=== PATIENT | female | born 1995 | race American Indian/Alaskan Native ===

== ENCOUNTER 2017-03-31 17:15 | Emergency (ER) | payer SELFPAY ==
--- NOTE | 2017-03-31 17:39 | Emergency Department Report ---
Chief Complaint: Chest Pain Stated Complaint: CHEST PAIN /DIZZINESS/LIGHT HEADED Time Seen by Provider: 03/31/17 17:35 - HPI History of Present Illness: PT states she had a panic attack while at work. PT states her symptoms have lasted for 30-45 min. PT states she is feeling better now - ROS Review of Systems: + anxiety + stress + chest pain - depression - Exam Vital Signs: Vital Signs 03/31/17 17:25 Temperature 98.2 F Pulse Rate 66 Respiratory 18 Rate Blood Pressure 156/90 O2 Sat by Pulse 100 Oximetry Physical Exam: obese female flat affect MSE screening note: Focused history and physical exam performed. Due to findings the following was ordered: labs, xr ED Disposition for MSE Condition: Stable
[2017-03-31 20:05] LABS: Basophils % (Auto) 0.8 % (0.0-1.8); Eosinophils % (Auto) 1.2 % (0.0-4.3); Hematocrit 38.1 % (30.3-42.9); Hemoglobin 12.4 gm/dl (10.1-14.3); Mean Corpuscular HGB Conc 32 % (30-34); Mean Corpuscular Volume 70 fl (79-97); Platelet Count 333 K/mm3 (140-440); Red Blood Count 5.42 M/mm3 (3.65-5.03); Red Cell Distribution Width 15.9 % (13.2-15.2)
[2017-03-31 20:06] LABS: Mean Corpuscular Hemoglobin 23 pg (28-32)
[2017-03-31 20:18] LABS: Alanine Aminotransferase 8 units/L (7-56); Albumin 3.9 g/dL (3.9-5); Albumin/Globulin Ratio 1.1 %; Alkaline Phosphatase 66 units/L (35-129); Anion Gap 18 mmol/L; BUN/Creatinine Ratio 16.66; Blood Urea Nitrogen 10 mg/dL (7-17); Calcium 9.3 mg/dL (8.4-10.2); Carbon Dioxide 24 mmol/L (22-30); Chloride 99.9 mmol/L (98-107); Glucose 115 mg/dL (65-100); Potassium 3.7 mmol/L (3.6-5.0); Sodium 138 mmol/L (137-145); Total Protein 7.3 g/dL (6.3-8.2)
[2017-03-31 21:01] VITALS: BP 135/85
--- NOTE | 2017-03-31 21:05 | Emergency Department Report ---
ED General Adult HPI - General Chief complaint: Chest Pain Stated complaint: CHEST PAIN /DIZZINESS/LIGHT HEADED Time Seen by Provider: 03/31/17 17:35 Source: patient, RN notes reviewed Mode of arrival: Ambulatory Limitations: No Limitations - History of Present Illness Initial comments: This is a 21-year-old female. She is previously unknown to me. She does not have a local primary care doctor. She denies chronic medical conditions. She does not take control tablets. The patient reports that she's been feeling anxious and "stressed out" about her mother recently passing away a few months ago. She was thinking about it today while at work. The patient reports that at 3:30 this afternoon, she developed chest pressure, dizziness, lightheadedness. The pressure did not radiate to the back, arms and neck. There is no vomiting or diaphoresis. There was mild shortness of breath. There is no leg pain. There is no leg swelling. No recent trips greater than 4 hours. No recent hospitalizations. Her symptoms have since resolved. She has no complaints at this time. -: Sudden, minutes(s) Location: chest Severity scale (0 -10): 7 Quality: other (reports chest pressure, and "heart racing.") Consistency: now resolved Improves with: none Worsens with: none Associated Symptoms: confusion - Related Data Home Medications Medication Instructions Recorded Confirmed Last Taken No Known Home Medications [No 03/31/17 03/31/17 Unknown Reported Home Medications] Allergies Allergy/AdvReac Type Severity Reaction Status Date / Time No Known Allergies Allergy Unverified 03/31/17 17:23 ED Review of Systems ROS: Stated complaint: CHEST PAIN /DIZZINESS/LIGHT HEADED Other details as noted in HPI Constitutional: denies: fever, malaise Eyes: denies: eye discharge ENT: denies: epistaxis Respiratory: denies: cough Cardiovascular: chest pain Gastrointestinal: denies: abdominal pain Genitourinary: denies: dysuria Musculoskeletal: denies: back pain Skin: denies: lesions Neurological: weakness Psychiatric: anxiety ED Past Medical Hx - Past Medical History Previous Medical History?: No Additional medical history: Bronchitis - Surgical History Past Surgical History?: Yes Additional Surgical History: cystremoved from chest @ age 1 - Social History Smoking Status: Never Smoker Substance Use Type: None - Medications Home Medications: Home Medications Medication Instructions Recorded Confirmed Last Taken Type No Known Home Medications [No 03/31/17 03/31/17 Unknown History Reported Home Medications] ED Physical Exam - General Limitations: No Limitations General appearance: alert, in no apparent distress - Head Head exam: Present: atraumatic, normocephalic - Eye Eye exam: Present: normal appearance, PERRL, EOMI, other (visual acuity intact to finger counting, color perception, reading at a close distance). Absent: nystagmus - ENT ENT exam: Present: normal exam, normal orophraynx, mucous membranes moist, normal external ear exam - Neck Neck exam: Present: normal inspection, full ROM. Absent: tenderness, meningismus - Respiratory Respiratory exam: Present: normal lung sounds bilaterally. Absent: respiratory distress, wheezes, rales, rhonchi, stridor, chest wall tenderness, accessory muscle use, decreased breath sounds, prolonged expiratory - Cardiovascular Cardiovascular Exam: Present: regular rate, normal rhythm, normal heart sounds. Absent: bradycardia, tachycardia, irregular rhythm, systolic murmur, diastolic murmur, rubs, gallop - GI/Abdominal GI/Abdominal exam: Present: soft, normal bowel sounds. Absent: distended, tenderness, guarding, rebound, rigid, pulsatile mass - Extremities Exam Extremities exam: Present: normal inspection, full ROM, normal capillary refill. Absent: tenderness, pedal edema, joint swelling, calf tenderness - Back Exam Back exam: Present: normal inspection, full ROM. Absent: tenderness, CVA tenderness (R), CVA tenderness (L), muscle spasm, paraspinal tenderness, vertebral tenderness - Neurological Exam Neurological exam: Present: alert (visual acuity intact to finger counting, color perception, reading at a close distance), oriented X3, normal gait, other (Extraocular movements intact. Tongue midline. No facial droop. Facial sensation intact to light touch in the V1, V2, V3 distribution bilaterally. 5 and 5 strength in 4 extremities.. Sensation is intact to light touch in 4 extremities.). Absent: motor sensory deficit - Psychiatric Psychiatric exam: Present: anxious - Skin Skin exam: Present: warm, dry, intact, normal color. Absent: rash ED Course Vital Signs 03/31/17 03/31/17 03/31/17 17:25 20:02 20:11 Temperature 98.2 F Pulse Rate 66 57 L 65 Respiratory 18 16 Rate Blood Pressure 156/90 142/90 O2 Sat by Pulse 100 100 100 Oximetry 03/31/17 03/31/17 03/31/17 20:19 20:21 20:45 Temperature Pulse Rate 57 L 67 57 L Respiratory 14 15 Rate Blood Pressure 135/85 135/85 O2 Sat by Pulse 100 100 Oximetry ED Medical Decision Making - Lab Data Result diagrams: 03/31/17 19:37 03/31/17 19:37 Vital Signs 03/31/17 03/31/17 03/31/17 17:25 20:02 20:11 Temperature 98.2 F Pulse Rate 66 57 L 65 Respiratory 18 16 Rate Blood Pressure 156/90 142/90 O2 Sat by Pulse 100 100 100 Oximetry 03/31/17 03/31/17 03/31/17 20:19 20:21 20:45 Temperature Pulse Rate 57 L 67 57 L Respiratory 14 15 Rate Blood Pressure 135/85 135/85 O2 Sat by Pulse 100 100 Oximetry Lab Results 03/31/17 03/31/17 03/31/17 Range/Units 19:37 19:37 19:37 WBC 7.0 (4.5-11.0) K/mm3 RBC 5.42 H (3.65-5.03) M/mm3 Hgb 12.4 (10.1-14.3) gm/dl Hct 38.1 (30.3-42.9) % MCV 70 L (79-97) fl MCH 23 L (28-32) pg MCHC 32 (30-34) % RDW 15.9 H (13.2-15.2) % Plt Count 333 (140-440) K/mm3 Lymph % (Auto) 27.9 (13.4-35.0) % [place] % (Auto) 6.8 (0.0-7.3) % Eos % (Auto) 1.2 (0.0-4.3) % Baso % (Auto) 0.8 (0.0-1.8) % Lymph # 2.0 (1.2-5.4) K/mm3 [place] # 0.5 (0.0-0.8) K/mm3 Eos # 0.1 (0.0-0.4) K/mm3 Baso # 0.1 (0.0-0.1) K/mm3 Seg Neutrophils % 63.3 (40.0-70.0) % Seg Neutrophils # 4.4 (1.8-7.7) K/mm3 Sodium 138 (137-145) mmol/L Potassium 3.7 (3.6-5.0) mmol/L Chloride 99.9 (98-107) mmol/L Carbon Dioxide 24 (22-30) mmol/L Anion Gap 18 mmol/L BUN 10 (7-17) mg/dL Creatinine 0.6 L (0.7-1.2) mg/dL Estimated GFR > 60 ml/min BUN/Creatinine Ratio 16.66 % Glucose 115 H (65-100) mg/dL Calcium 9.3 (8.4-10.2) mg/dL Total Bilirubin 0.30 (0.1-1.2) mg/dL AST 12 (5-40) units/L ALT 8 (7-56) units/L Alkaline Phosphatase 66 (35-129) units/L Troponin T (0.00-0.029) ng/mL Total Protein 7.3 (6.3-8.2) g/dL Albumin 3.9 (3.9-5) g/dL Albumin/Globulin Ratio 1.1 % HCG, Qual Negative (Negative) 03/31/17 Range/Units 19:37 WBC (4.5-11.0) K/mm3 RBC (3.65-5.03) M/mm3 Hgb (10.1-14.3) gm/dl Hct (30.3-42.9) % MCV (79-97) fl MCH (28-32) pg MCHC (30-34) % RDW (13.2-15.2) % Plt Count (140-440) K/mm3 Lymph % (Auto) (13.4-35.0) % [place] % (Auto) (0.0-7.3) % Eos % (Auto) (0.0-4.3) % Baso % (Auto) (0.0-1.8) % Lymph # (1.2-5.4) K/mm3 [place] # (0.0-0.8) K/mm3 Eos # (0.0-0.4) K/mm3 Baso # (0.0-0.1) K/mm3 Seg Neutrophils % (40.0-70.0) % Seg Neutrophils # (1.8-7.7) K/mm3 Sodium (137-145) mmol/L Potassium (3.6-5.0) mmol/L Chloride (98-107) mmol/L Carbon Dioxide (22-30) mmol/L Anion Gap mmol/L BUN (7-17) mg/dL Creatinine (0.7-1.2) mg/dL Estimated GFR ml/min BUN/Creatinine Ratio % Glucose (65-100) mg/dL Calcium (8.4-10.2) mg/dL Total Bilirubin (0.1-1.2) mg/dL AST (5-40) units/L ALT (7-56) units/L Alkaline Phosphatase (35-129) units/L Troponin T < 0.010 (0.00-0.029) ng/mL Total Protein (6.3-8.2) g/dL Albumin (3.9-5) g/dL Albumin/Globulin Ratio % HCG, Qual (Negative) - EKG Data -: EKG Interpreted by Me - EKG Data 03/31/17 21:46 EKG #1 demonstrates sinus, 66 bpm, normal intervals, normal axis , unremarkable EKG, not morphologically consistent with STEMI. EKG #2 demonstrates normal sinus, 60 bpm, normal intervals, normal axis, not morphologically consistent with STEMI. - Radiology Data Radiology results: image reviewed interpreted by me: X-ray the chest is negative for acute disease - Medical Decision Making Differential diagnosis: Orthostasis, vagal event, dehydration, anemia, , acute coronary syndrome, pneumonia, panic attack Assessment and plan: 21-year-old female with no significant medical history, no pulmonary embolus or DVT risk factors, low risk by well's criteria, low risk by heart score, low risk by LUIS CARLOS score, perc negative with nonspecific symptoms including dizziness, chest pressure, heart racing. She is afebrile, with reassuring vital signs. She is clinically sober at this time, walks with a steady gait, has a GCS of 15, with an NIH score of 0. Unlikely to be acute coronary syndrome, very low risk for major adverse cardiac event, patient understands this. She feels improved at this time. Laboratory studies are unremarkable, not consistent with dehydration, anemia, . X-ray chest not consistent with any significant intrathoracic process. Patient is to follow -up in outpatient primary care doctor or resume writer. She will be discharged at this time. She reports unlimited exercise tolerance. Critical care attestation.: If time is entered above; I have spent that time in minutes in the direct care of this critically ill patient, excluding procedure time. ED Disposition Clinical Impression: Chest pressure Disposition: DC-01 TO HOME OR SELFCARE Is pt being admited?: No Does the pt Need Aspirin: No Condition: Stable Instructions: Palpitations (ED) Additional Instructions: Follow-up with a primary care doctor or resume writer within the next 7-[address] Buchanan is a local primary care doctor. Doctor'marielos Rodriguez and Juan are local dairy nutrition specialist. Return to the ER right away with new pain, worsened pain, migration of pain, fevers, chills, confusion, intractable nausea or vomiting, inability to tolerate liquid feeds. Referrals: PRIMARY MD LILIBETH [Primary Care Provider] - 3-5 Days LARISA RODRIGUEZ MD [Staff Physician] - 3-5 Days MINE CANO MD [Staff Physician] - 3-5 Days LENA BUCHANAN MD [Staff Physician] - 3-5 Days Forms: Work/School Release Form(ED)
--- NOTE | 2017-04-01 07:28 | XRay Report ---
ROUTINE CHEST, TWO VIEWS: HISTORY: chest pain. The trachea, heart, mediastinal contour, lung hall and bony thorax are unremarkable. IMPRESSION: Unremarkable chest x-ray.
== END 2017-03-31 22:03 | disposition home or self-care (01) ==
LOC: ED 17:15
DX: R07.89 Other chest pain (principal)
CPT/HCPCS: 36415; 71020; 80053; 84484; 84703; 85025; 93005; 93010

== ENCOUNTER 2018-05-22 17:55 | Emergency (ER) | payer SELFPAY ==
[2018-05-22] MEDS ORDERED: ASPIRIN PO ONE (18:25)
[2018-05-22] MEDS ORDERED: ASPIRIN ONE (18:29)
[2018-05-22 19:01] LABS: Basophils # (Auto) 0.1 K/mm3 (0.0-0.1); Basophils % (Auto) 0.9 % (0.0-1.8); Eosinophils # (Auto) 0.1 K/mm3 (0.0-0.4); Eosinophils % (Auto) 1.1 % (0.0-4.3); Hematocrit 38.8 % (30.3-42.9); Hemoglobin 12.2 gm/dl (10.1-14.3); Lymphocytes # (Auto) 2.2 K/mm3 (1.2-5.4); Mean Corpuscular HGB Conc 32 % (30-34); Mean Corpuscular Volume 74 fl (79-97); Monocytes # (Auto) 0.9 K/mm3 (0.0-0.8); Monocytes % (Auto) 10.9 % (0.0-7.3); Platelet Count 316 K/mm3 (140-440); Red Blood Count 5.24 M/mm3 (3.65-5.03); Red Cell Distribution Width 15.6 % (13.2-15.2)
[2018-05-22 19:08] LABS: Mean Corpuscular Hemoglobin 23 pg (28-32)
[2018-05-22 19:10] LABS: INR 0.95 (0.87-1.13)
[2018-05-22 19:11] LABS: Partial Thromboplastin Time 27.5 Sec. (24.2-36.6)
[2018-05-22 19:33] LABS: BUN/Creatinine Ratio 10; Blood Urea Nitrogen 8 mg/dL (7-17); Calcium 9.1 mg/dL (8.4-10.2); Hemolysis Index 117
[2018-05-22] MEDS ORDERED: TYLENOL PO ONE (21:23)
[2018-05-22] MEDS ORDERED: MOTRIN PO ONE (21:23)
--- NOTE | 2018-05-22 21:23 | Emergency Department Report ---
ED Chest Pain HPI - General Chief Complaint: Chest Pain Stated Complaint: CHEST PAINS Time Seen by Provider: 05/22/18 21:10 Source: patient, RN notes reviewed, old records reviewed Mode of arrival: Ambulatory Limitations: No Limitations - History of Present Illness Initial Comments: This is a 22-year-old female whom I have evaluated in the past. She does not have a local primary care doctor and denies chronic medical conditions. The patient presents to the ER with a complaint of central chest pain which started started at 11:30 last night and went until 3:30 this evening. The chest pain is central and does not radiate to the back, arms and neck. There is no vomiting or diaphoresis. Patient describes lightheadedness and intermittent shortness of breath. She does not take oral contraceptives and reports that she is not . She reports that she is currently on her menstruation at this time. She denies DVT, pulmonary embolus risk factors, recent aspirin use, recent cocaine use. She denies headache, neck pain, lower abdominal pain, red blood per rectum, hematemesis. MD Complaint: chest pain -: Gradual Onset: during rest Pain Location: substernal Pain Radiation: none Quality: tightness, aching Consistency: now resolved Improves With: rest Worsens With: movement re: dyspnea Other Symptoms: other (patient describes near syncope) Aspirin use within the Past 7 Days: (0) No - Related Data On Oral Contraceptives: No Home Medications Medication Instructions Recorded Confirmed Last Taken No Known Home Medications [No 03/31/17 03/31/17 Unknown Reported Home Medications] Allergies Allergy/AdvReac Type Severity Reaction Status Date / Time No Known Allergies Allergy Unverified 03/31/17 17:23 Heart Score - HEART Score History: Moderately suspicious EKG: Non-specific Age: < 45 Risk factors: No known risk factors Troponin: < normal limit HEART Score: 2 - Critical Actions Critical Actions: 0-3 pts:0.9-1.7%risk of adverse cardiac event.Candidate for discharge ED Review of Systems ROS: Stated complaint: CHEST PAINS Other details as noted in HPI Constitutional: denies: fever Eyes: denies: eye discharge ENT: denies: epistaxis Respiratory: denies: cough Cardiovascular: chest pain Gastrointestinal: denies: nausea, vomiting Genitourinary: denies: dysuria Musculoskeletal: denies: back pain Skin: denies: lesions Psychiatric: anxiety ED Past Medical Hx - Past Medical History Previous Medical History?: No Additional medical history: Bronchitis - Surgical History Past Surgical History?: Yes Additional Surgical History: cystremoved from chest @ age 1 - Social History Smoking Status: Never Smoker Substance Use Type: None - Medications Home Medications: Home Medications Medication Instructions Recorded Confirmed Last Taken Type No Known Home Medications [No 03/31/17 03/31/17 Unknown History Reported Home Medications] ED Physical Exam - General Limitations: No Limitations General appearance: alert, in no apparent distress - Head Head exam: Present: atraumatic, normocephalic - Eye Eye exam: Present: normal appearance, EOMI. Absent: nystagmus - ENT ENT exam: Present: normal exam, normal orophraynx, mucous membranes moist, normal external ear exam - Neck Neck exam: Present: normal inspection, full ROM. Absent: tenderness, meningismus - Respiratory Respiratory exam: Present: normal lung sounds bilaterally, chest wall tenderness , other (bilateral breast exam nontender with no redness, pus or streaking. Chaperoned by TANVI LONG). Absent: respiratory distress - Cardiovascular Cardiovascular Exam: Present: normal rhythm, bradycardia, normal heart sounds. Absent: systolic murmur, diastolic murmur, rubs, gallop - GI/Abdominal GI/Abdominal exam: Present: soft, normal bowel sounds. Absent: distended, tenderness, guarding, rebound, rigid, pulsatile mass - Extremities Exam Extremities exam: Present: normal inspection, full ROM, normal capillary refill , other (2+ pulses noted in the bilateral upper, lower extremities. Compartments soft. No long bony tenderness. The pelvis is stable.). Absent: tenderness, pedal edema, joint swelling, calf tenderness - Back Exam Back exam: Present: normal inspection, full ROM. Absent: tenderness, CVA tenderness (R), paraspinal tenderness, vertebral tenderness - Neurological Exam Neurological exam: Present: alert, oriented X3, CN II-XII intact, normal gait, other (Extraocular movements intact. Tongue midline. No facial droop. Facial sensation intact to light touch in the V1, V2, V3 distribution bilaterally. 5 and 5 strength in 4 extremities.. Sensation is intact to light touch in 4 extremities.). Absent: motor sensory deficit - Psychiatric Psychiatric exam: Present: anxious - Skin Skin exam: Present: warm, dry, intact, normal color. Absent: rash ED Course Vital Signs 09/29/18 09/29/18 18:19 21:25 Temperature 99.7 F H Pulse Rate 59 L Respiratory 18 Rate Blood Pressure 125/80 124/62 O2 Sat by Pulse 90 Oximetry - Reevaluation(s) Reevaluation #1: 05/22/18 23:07 Differential diagnosis, including but not limited to: Orthostasis, vagal event, structural cardiac disease pulmonary embolus, acute coronary syndrome, Pulmonary embolus,, pneumonia Assessment and plan: 22-year-old female with no pulmonary embolus or DVT risk factors who is low risk by well's criteria, who is perc negative, low risk by AJ score, low risk by heart score, with reproducible chest wall pain. However , she endorses near syncope, lightheadedness, shortness of breath, and had a low -grade temperature initially on triage. Doubt acute coronary syndrome, her EKG is morphologically unremarkable 2 and appears to be unchanged from her prior EKG from 2017. In addition, I have evaluated this patient for similar symptoms in the past. Patient at low risk for major adverse cardiac event. She reports that she is not . However, a d-dimer sent and is elevated, so CT scan of the chest is pending to evaluate for pulmonary embolus. 05/22/18 23:07 Reevaluation #2: 05/23/18 00:08 X-ray of the chest is negative. Troponin negative 2. The patient is a difficult IV stick. Multiple nurses have attempted to place IV and the patient and have been unsuccessful. I recommended external jugular ultrasound guided IV placement into the patient, and she is refusing at this point in time. The patient indicates that she is going to go home. The patient understands that she is leaving his medical recommendations. The risks of leaving, including , disability, paralysis, loss of quality of life were discussed with the patient and she verbalized understanding. She is alert and oriented, clinically sober, free from distracting injury and exhibits decision-making capacity at this time. This conversation is witnessed by nurse Bernadine Benito AJ score - Aj Score Age > 65: (0) No Aspirin use within the Past 7 Days: (0) No 3 or more CAD Risk Factors: (0) No 2 or more Angina events in past 24 hrs: (0) No Known CAD with more than 50% Stenosis: (0) No Elevated Cardiac Markers: (0) No ST Deviation Greater than 0.5mm: (0) No AJ Score: 0 ED Medical Decision Making - Lab Data Result diagrams: 05/22/18 18:48 05/22/18 18:48 Vital Signs 05/22/18 05/22/18 18:19 21:25 Temperature 99.7 F H Pulse Rate 59 L Respiratory 18 Rate Blood Pressure 125/80 124/62 O2 Sat by Pulse 90 Oximetry Lab Results 05/22/18 05/22/18 05/22/18 Range/Units 18:48 18:48 18:48 WBC 8.5 (4.5-11.0) K/mm3 RBC 5.24 H (3.65-5.03) M/mm3 Hgb 12.2 (10.1-14.3) gm/dl Hct 38.8 (30.3-42.9) % MCV 74 L (79-97) fl MCH 23 L (28-32) pg MCHC 32 (30-34) % RDW 15.6 H (13.2-15.2) % Plt Count 316 (140-440) K/mm3 Lymph % (Auto) 26.0 (13.4-35.0) % [place] % (Auto) 10.9 H (0.0-7.3) % Eos % (Auto) 1.1 (0.0-4.3) % Baso % (Auto) 0.9 (0.0-1.8) % Lymph # 2.2 (1.2-5.4) K/mm3 [place] # 0.9 H (0.0-0.8) K/mm3 Eos # 0.1 (0.0-0.4) K/mm3 Baso # 0.1 (0.0-0.1) K/mm3 Seg Neutrophils % 61.1 (40.0-70.0) % Seg Neutrophils # 5.2 (1.8-7.7) K/mm3 PT 13.1 (12.2-14.9) Sec. INR 0.95 (0.87-1.13) APTT 27.5 (24.2-36.6) Sec. D-Dimer (0-234) ng/mlDDU Sodium 138 (137-145) mmol/L Potassium 4.3 (3.6-5.0) mmol/L Chloride 104.1 (98-107) mmol/L Carbon Dioxide 21 L (22-30) mmol/L Anion Gap 17 mmol/L BUN 8 (7-17) mg/dL Creatinine 0.8 (0.7-1.2) mg/dL Estimated GFR > 60 ml/min BUN/Creatinine Ratio 10 % Glucose 88 (65-100) mg/dL Calcium 9.1 (8.4-10.2) mg/dL Troponin T < 0.010 (0.00-0.029) ng/mL 05/22/18 Range/Units 21:23 WBC (4.5-11.0) K/mm3 RBC (3.65-5.03) M/mm3 Hgb (10.1-14.3) gm/dl Hct (30.3-42.9) % MCV (79-97) fl MCH (28-32) pg MCHC (30-34) % RDW (13.2-15.2) % Plt Count (140-440) K/mm3 Lymph % (Auto) (13.4-35.0) % [place] % (Auto) (0.0-7.3) % Eos % (Auto) (0.0-4.3) % Baso % (Auto) (0.0-1.8) % Lymph # (1.2-5.4) K/mm3 [place] # (0.0-0.8) K/mm3 Eos # (0.0-0.4) K/mm3 Baso # (0.0-0.1) K/mm3 Seg Neutrophils % (40.0-70.0) % Seg Neutrophils # (1.8-7.7) K/mm3 PT (12.2-14.9) Sec. INR (0.87-1.13) APTT (24.2-36.6) Sec. D-Dimer 280.1 H (0-234) ng/mlDDU Sodium (137-145) mmol/L Potassium (3.6-5.0) mmol/L Chloride (98-107) mmol/L Carbon Dioxide (22-30) mmol/L Anion Gap mmol/L BUN (7-17) mg/dL Creatinine (0.7-1.2) mg/dL Estimated GFR ml/min BUN/Creatinine Ratio % Glucose (65-100) mg/dL Calcium (8.4-10.2) mg/dL Troponin T (0.00-0.029) ng/mL - EKG Data -: EKG Interpreted by Me - EKG Data When compared to previous EKG there are: no significant change 05/22/18 23:09 EKG #1 demonstrates sinus bradycardia, 59 bpm, normal axis, low voltage, this EKG is not a STEMI. EKG #2 appears to be unchanged. Both EKGs appear to be unchanged from prior mother mar 31 2017 Critical care attestation.: If time is entered above; I have spent that time in minutes in the direct care of this critically ill patient, excluding procedure time. ED Disposition Clinical Impression: Chest wall pain Disposition: LEFT AGAINST MED ADVICE Is pt being admited?: No Does the pt Need Aspirin: No Condition: Undetermined Instructions: Chest Pain (ED), Costochondritis (ED) Additional Instructions: As we discussed, you have left the hospital/emergency room AGAINST MEDICAL ADVICE. By leaving, you risked , disability, paralysis, permanent loss of quality of life. The ER is open 24 hours a day, 7 days a week. It never closes. Please return to the emergency room right away if and when you change your mind. If you decide not to return to the emergency room, please follow-up with the listed physician referrals as soon as possible. Referrals: [facility] [Provider Group] - 3-5 Days [facility] [Provider Group] - 3-5 Days Forms: Work/School Release Form(ED)
[2018-05-22] MEDS ORDERED: NACL 0.9% 1000 ML 1,000 ML IV ONE (22:38)
[2018-05-23 00:26] VITALS: BP 139/100
--- NOTE | 2018-05-23 00:41 | XRay Report ---
FINAL REPORT PROCEDURE: XR CHEST ROUTINE 2V TECHNIQUE: PA and lateral chest radiographs were obtained. CPT 20758 HISTORY: cp COMPARISON: No prior studies are available for comparison. FINDINGS: Heart: Normal. Mediastinum/Vessels: Normal. Lungs/Pleural space: Normal. Bony thorax: No acute osseous abnormality. Other: IMPRESSION: Normal examination.
== END 2018-05-23 00:32 | disposition left against medical advice (07) ==
LOC: ED 17:55
DX: R07.89 Other chest pain (principal); R42 Dizziness and giddiness
CPT/HCPCS: 36415; 71046; 80048; 84484; 84702; 85025; 85379; 85610; 85730; 93005; 93010; 99284